=== PATIENT | male | born 1980 | race Native Hawaiian/Other Pacific Islander ===

== ENCOUNTER 2018-02-04 21:43 | Emergency (ER) | payer OTHER ==
[2018-02-04 22:06] VITALS: O2SAT 98
[2018-02-04 22:11] VITALS: BMI 24.9
[2018-02-04] MEDS ORDERED: Lidocaine 5% Patch TD STA (22:29)
--- NOTE | 2018-02-04 22:29 | ED PDOC ---
Arrival/HPI - General Chief Complaint: Back Pain Time Seen by Provider: 02/04/18 22:24 Historian: Patient - History of Present Illness Narrative History of Present Illness (Text): 02/04/18 22:25 37 y/o male, no significant pmh, nkda, c/o rt. lower back pain radiating to the rt. thigh and knee region x 4 days with no fall or trauma. Pt. 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 lower back pain radiating to the rt. thigh and rt. knee region, no urinary symptoms, no urinary or bowel incontinence/retention, no testicular pain or urinary symptoms , no pain medication taken at home, no other medical or psychological complaints. Past Medical History - Provider Review Nursing Documentation Reviewed: Yes - Infectious Disease Hx of Infectious Diseases: None - Cardiac Hx Cardiac Disorders: No - Pulmonary Hx Respiratory Disorders: No - Neurological Hx Neurological Disorder: No - HEENT Hx HEENT Disorder: No - Renal Hx Renal Disorder: No - Endocrine/Metabolic Hx Endocrine Disorders: No - Hematological/Oncological Hx Blood Disorders: No - Integumentary Hx Dermatological Disorder: No - Musculoskeletal/Rheumatological Hx Musculoskeletal Disorders: No - Gastrointestinal Hx Gastrointestinal Disorders: No - Genitourinary/Gynecological Hx Genitourinary Disorders: No - Psychiatric Hx Psychophysiologic Disorder: No Hx Substance Use: No - Anesthesia Hx Anesthesia: No Hx Anesthesia Reactions: No Hx Malignant Hyperthermia: No Family/Social History - Physician Review Nursing Documentation Reviewed: Yes Family/Social History: Unknown Family HX Smoking Status: Heavy Smoker > 10 Cigarettes Daily Hx Alcohol Use: Yes Frequency of alcohol use: Socially Hx Substance Use: No Allergies/Home Meds Allergies/Adverse Reactions: Allergies No Known Allergies Allergy (Verified 02/04/18 22:04) Review of Systems - Review of Systems Constitutional: absent: Fatigue, Fevers Eyes: absent: Vision Changes ENT: absent: Hearing Changes Respiratory: absent: SOB, Cough Cardiovascular: absent: Chest Pain Gastrointestinal: absent: Abdominal Pain, Nausea, Vomiting Musculoskeletal: Back Pain, Myalgias. absent: Arthralgias, Neck Pain, Joint Swelling Skin: absent: Rash, Pruritis Neurological: absent: Headache, Dizziness Psychiatric: absent: Anxiety, Depression, Suicidal Ideation Physical Exam Vital Signs Reviewed: Yes Vital Signs Temp Pulse Resp BP Pulse Ox 02/04/18 22:05 98.2 F 74 18 101/62 98 Temperature: Afebrile Blood Pressure: Normal Pulse: Regular Respiratory Rate: Normal Appearance: Positive for: Well-Appearing, Non-Toxic Pain Distress: Severe Mental Status: Positive for: Alert and Oriented X 3 - Systems Exam Head: Present: Atraumatic, Normocephalic Pupils: Present: PERRL Extroacular Muscles: Present: EOMI Conjunctiva: Present: Normal Mouth: Present: Moist Mucous Membranes Nose (External): Present: Atraumatic. No: Abrasion, Contusion, Laceration Nose (Internal): Present: Normal Inspection, No Active Bleeding Neck: Present: Normal Range of Motion Respiratory/Chest: Present: Clear to Auscultation, Good Air Exchange. No: Respiratory Distress, Accessory Muscle Use, Decreased Breath Sounds, Rales, Retracting, Rhonchi Cardiovascular: Present: Regular Rate and Rhythm, Normal S1, S2. No: Murmurs Abdomen: No: Tenderness, Distention, Peritoneal Signs, Rebound, Guarding Back: Present: Normal Inspection, Paraspinal Tenderness (+rt. lumbar paraspinal muscle spasm with no swelling or vesicular rash, SLR test negative). No: CVA Tenderness, Midline Tenderness, Pain with Leg Raise, Decubitus Ulcer Upper Extremity: Present: Normal Inspection. No: Cyanosis, Edema Lower Extremity: Present: Normal Inspection, Other (RLE: no tenderness or swelling on the rt. knee or hip joint, no ecchymosis, FROM without limitation sensation intact, motor 5/5, neurovascular intact. ). No: Edema Neurological: Present: GCS=15, CN II-XII Intact, Speech Normal Skin: Present: Warm, Dry, Normal Color. No: Rashes Psychiatric: Present: Alert, Oriented x 3, Normal Insight, Normal Concentration Medical Decision Making ED Course and Treatment: 02/04/18 22:34 Differential: back spasm vs. back strain vs. DVT vs. renal stone (less likely) -Toradol/valium/lidoderm -UA -RLE Venuous doppler -Observe and reassess 02/05/18 00:47 -UA show no hematuria, no UTI -RLE Venuous doppler: As per preliminary report: no acute DVT. -Rt. knee xray: no fracture or dislocation. -Pt. feels much better, knee and thigh pain resolved with only mild lower back pain, no midline tenderness, walking with normal gait and posture. -Discharge home with motrin, pepcid, flexeril, lidoderm, heat compression, follow up with your own pmd and orthopedic within 2 days, return to the ER for any new or worsening signs or symptoms. - Lab Interpretations Lab Results: Lab Results 02/04/18 23:10: Urine Color Yellow, Urine Appearance Clear, Urine pH 6.0, Ur Specific [place] 1.020, Urine Protein Negative, Urine Glucose (UA) Negative, Urine Ketones Trace H, Urine Blood Negative, Urine Nitrate Negative, Urine Bilirubin Negative, Urine Urobilinogen 0.2, Ur Leukocyte Esterase Negative - RAD Interpretation Radiology Orders: 02/04/18 22:32 DUPLEX LOWER EXTRM VEIN RIGHT [US] Stat As per preliminary report: no acute DVT Director Of Institutional Research: Radiologist - Medication Orders Current Medication Orders: Discontinued Medications Diazepam (Valium) 10 mg PO ONCE ONE PRN Reason: Protocol Stop: 02/04/18 22:30 Last Admin: 02/04/18 22:44 Dose: 10 mg Ketorolac Tromethamine (Toradol) 60 mg IM STAT STA Stop: 02/04/18 22:30 Last Admin: 02/04/18 22:45 Dose: 60 mg MAR Pain Assessment Document 02/04/18 22:45 [facility] (Rec: 02/04/18 22:45 [id number] Pain Reassessment Is this a pain reassessment? No Sleep Is patient sleeping during reassessment? No Presence of Pain Presence of Pain Yes Pain Scale Used Pain Scale Used Numeric Location Left, Right or Bilateral Right Upper or Lower Lower Pain Location Body Site Back Description Description Sharp Intensity of Pain at present 8 Acceptable Level of Pain 0 Pain Behavior Rubbing Site Restlessness Aggravating Factors ADL's IM Administration Charges Document 02/04/18 22:45 R (Rec: 02/04/18 22:45 [id number] Injection Site MAR Injection Site Left Deltoid Charges for Administration # of IM Administrations 1 Lidocaine (Lidoderm) 1 ea TD STAT STA Stop: 02/04/18 22:30 Last Admin: 02/04/18 22:45 Dose: 1 ea MAR Transdermal Patch Site Document 02/04/18 22:45 R (Rec: 02/04/18 22:46 [id number] Transdermal Patch Site Transdermal Patch Site Right Lower Back - PA / PROGRAM PROPOSALS COORDINATOR / Resident Statement / has reviewed & agrees with the documentation as recorded. Disposition/Present on Arrival - Present on Arrival Any Indicators Present on Arrival: No History of DVT/PE: No History of Uncontrolled Diabetes: No Urinary Catheter: No History of Decub. Ulcer: No History Surgical Site Infection Following: None - Disposition Have Diagnosis and Disposition been Completed?: Yes Diagnosis: Lower back pain, Muscle spasm Disposition: HOME/ ROUTINE Disposition Time: 00:51 Patient Plan: Discharge Condition: IMPROVED Additional Instructions: -Discharge home with motrin, pepcid, flexeril, lidoderm, heat compression, follow up with your own pmd and orthopedic within 2 days, return to the ER for any new or worsening signs or symptoms. Prescriptions: Cyclobenzaprine [Cyclobenzaprine HCl] 10 mg PO TID PRN #30 tab PRN Reason: Other Famotidine [Pepcid] 20 mg PO BID #20 tab Ibuprofen [Motrin Tab] 800 mg PO TID PRN #30 tab PRN Reason: Other Lidocaine 5% [Lidoderm] 1 patch TOP DAILY #14 patch Referrals: Bunny Chen MD [Primary Care Provider] - Follow up with primary Eric Montero DO [Staff Provider] - Follow up with primary Forms: WORK NOTE
[2018-02-04 23:32] LABS: URINE BILIRUBIN NEGATIVE (NEGATIVE); URINE BLOOD NEGATIVE (NEGATIVE); URINE GLUCOSE (UA) NEGATIVE (NEGATIVE); URINE LEUKOCYTE ESTERASE NEGATIVE Leu/uL (NEGATIVE); URINE PROTEIN NEGATIVE mg/dL (<30 mg/dL); URINE UROBILINOGEN 0.2 E.U./dL (<1 E.U./dL)
[2018-02-04 23:45] LABS: URINE APPEARANCE CLEAR (CLEAR); URINE COLOR YELLOW (YELLOW)
[2018-02-05 01:05] VITALS: BP 110/70; PULSE 76; RESP 16
[2018-02-05 01:14] VITALS: TEMP 98.1
--- NOTE | 2018-02-05 13:12 | US ---
PROCEDURE: Right lower extremity venous US HISTORY: Leg pain and swelling. Evaluate for DVT. PHYSICIAN(S): Art Barriga M.D. TECHNIQUE: Duplex sonography and color-flow Doppler with graded compression were used to evaluate the deep venous system of the right lower extremity. FINDINGS: The visualized deep venous system of the right lower extremity is sonographically normal and compressible. Normal waveforms and augmentation are seen. There is no sonographic evidence for deep venous thrombosis in the visualized segments of the right lower extremity. IMPRESSION: 1. No sonographic evidence for deep venous thrombosis in the visualized segments of the right lower extremity.
== END 2018-02-05 01:03 | disposition home or self-care (01) ==
LOC: ED 21:43
DX: M54.5 Low back pain (principal); M62.838 Other muscle spasm; F17.210 Nicotine dependence, cigarettes, uncomplicated
CPT/HCPCS: 81003; 93971; 96372; 99283; J1885